=== PATIENT | female | born 1995 | race Caucasian/White ===

== ENCOUNTER → 2016-12-24 | Outpatient (CLI) | payer BC ==
[~2016-12-24] MED LIST: CEFU500T16 PO; CLR10 PO; DOXY100C76 PO; DULO-24 PO; ETONMIS VAGRING; LORA-741 PO
--- NOTE | 2016-12-24 11:14 | DIAGNOSTIC IMAGING REPORT ---
ULTRASOUND OF THE PELVIS CLINICAL HISTORY: Pelvic pain. COMPARISON STUDY: No priors. TECHNIQUE: Real-time, grayscale, and color flow sonography of the pelvis is performed both transabdominally and endovaginally. Images are reviewed in the transverse and longitudinal planes. FINDINGS: Uterus: The uterus is normal in size and echotexture, measuring 7.7 x 3.1 x 3.4 cm. Endometrium: The endometrium is normal in appearance, and the endometrial stripe is normal in thickness measuring up to 0.3 cm. Ovaries: The ovaries are normal in size and morphology. The right ovary measures 2.5 x 1.1 x 2.5 cm and the left ovary measures 3.2 x 1.3 x 2.5 cm. Small ovarian follicles are incidentally noted. Normal Doppler waveforms are shown within both ovaries. Pelvis: There is no free fluid in the cul-de-sac. No concerning adnexal lesion is seen. IMPRESSION: Unremarkable sonographic assessment of the pelvis. Electronically signed by: Juan Francisco Lancaster M.D. 12/24/2016 11:13 AM Dictated Date/Time: 12/24/2016 11:12 AM
== END | disposition home or self-care (01) ==
LOC: C.ULTRBC 10:00
PROVIDERS: ATTEND Nurse Practitioner Women's Health
DX: R10.9 Unspecified abdominal pain (principal)